=== PATIENT | male | born 1935 | race Caucasian/White ===

== ENCOUNTER 2019-01-03 12:52 | Day surgery (SDC) | payer MEDICARE ==
[~2019-01-03] VITALS: Ht 188 cm; Wt 96.5 kg
[~2019-01-03 12:52] MED LIST: ATOR10; FEXO60
[2019-01-03] MEDS ORDERED: ATEN25 (13:52)
[2019-01-03] MEDS ORDERED: LEVSOD100 (13:52)
[2019-01-03] MEDS ORDERED: METF500 (13:53)
[2019-01-03] MEDS ORDERED: Aspirin EC81 MG (13:53)
[2019-01-03] MEDS ORDERED: ABAT250V (13:53)
== END 2019-01-03 15:48 | disposition home or self-care (01) ==
LOC: ORSCSDS 12:52
PROVIDERS: Internal Medicine Gastroenterology
PROC: 0DBM8ZX Excision of Descending Colon, Via Natural or Artificial Opening Endoscopic, Diagnostic (ICD-10-PCS; principal; 2019-01-03 14:30)
PROC: 0DB68ZX Excision of Stomach, Via Natural or Artificial Opening Endoscopic, Diagnostic (ICD-10-PCS; principal; 2019-01-03 14:30)
PROC: 0D757ZZ Dilation of Esophagus, Via Natural or Artificial Opening (ICD-10-PCS; principal; 2019-01-03 14:30)
PROC: 0DBP8ZX Excision of Rectum, Via Natural or Artificial Opening Endoscopic, Diagnostic (ICD-10-PCS; principal; 2019-01-03 14:30)
PROC: 0DBK8ZX Excision of Ascending Colon, Via Natural or Artificial Opening Endoscopic, Diagnostic (ICD-10-PCS; principal; 2019-01-03 14:30)
DX: Z12.11 Encounter for screening for malignant neoplasm of colon (principal); Z86.010 Personal history of colon polyps; D12.4 Benign neoplasm of descending colon; D12.2 Benign neoplasm of ascending colon; K62.1 Rectal polyp; K57.30 Diverticulosis of large intestine without perforation or abscess without bleeding; R13.14 Dysphagia, pharyngoesophageal phase; K21.9 Gastro-esophageal reflux disease without esophagitis; K31.7 Polyp of stomach and duodenum; K29.70 Gastritis, unspecified, without bleeding; K22.2 Esophageal obstruction; K44.9 Diaphragmatic hernia without obstruction or gangrene; E11.9 Type 2 diabetes mellitus without complications; E03.9 Hypothyroidism, unspecified; Z87.891 Personal history of nicotine dependence; I25.10 Atherosclerotic heart disease of native coronary artery without angina pectoris; Z79.899 Other long term (current) drug therapy; Z79.82 Long term (current) use of aspirin
CPT/HCPCS: 82947; 87081; 88305; 88342; J2704; J7120

== ENCOUNTER 2020-10-31 16:10 | Emergency (ER) | payer MEDICARE ==
[~2020-10-31] VITALS: Ht 185.4 cm; Wt 78.5 kg
[~2020-10-31 16:10] MED LIST changes: +ABAT250V; +ATEN25; +Aspirin EC81 MG; +LEVSOD100; +METF500
== END 2020-10-31 21:08 | disposition home or self-care (01) ==
LOC: ER 16:10
DX: M54.5 Low back pain (principal); R53.1 Weakness; E11.40 Type 2 diabetes mellitus with diabetic neuropathy, unspecified; Z79.82 Long term (current) use of aspirin; Z87.891 Personal history of nicotine dependence
CPT/HCPCS: 72080; 99283-25; A9270

== ENCOUNTER 2023-03-16 10:10 | Day surgery (SDC) | payer MEDICARE ==
--- NOTE | 2023-03-16 11:10 | NUR ---
03/16/23 1110 Bonny Rosario UPON BRINGING PATIENT IN TO [facility] AREA TO GET PATIENT ADMITTED INTO [facility], PT REPORTED TO SAHARA BOOKER THAT HE HAD EATEN AT 0700 THIS MORNING. ADE CONSULTED WITH ANESTHESIOLOGIST, DR. VARMA, AND CASE WAS CANCELLED. PT ADVISED HE WILL NEED TO CONTACT DR CHAKRABORTY'S OFFICE TO BE RESCHEDULED.
== END 2023-03-16 11:05 | disposition home or self-care (01) ==
LOC: ORSCSDS 10:10
DX: M67.449 Ganglion, unspecified hand (principal); Z53.9 Procedure and treatment not carried out, unspecified reason
CPT/HCPCS: J0690; J2795; J7120

== ENCOUNTER 2023-04-06 10:44 | Day surgery (SDC) | payer MEDICARE ==
[~2023-04-06] VITALS: Ht 188 cm; Wt 93.5 kg
[2023-04-06 13:07] VITALS: BP 137/89
== END 2023-04-06 13:31 | disposition home or self-care (01) ==
LOC: ORSCSDS 10:44
PROVIDERS: Orthopaedic Surgery
PROC: 0JBK0ZZ Excision of Left Hand Subcutaneous Tissue and Fascia, Open Approach (ICD-10-PCS; principal; 2023-04-06 12:00)
DX: M67.442 Ganglion, left hand (principal); I10 Essential (primary) hypertension; E11.9 Type 2 diabetes mellitus without complications; E07.9 Disorder of thyroid, unspecified; Z79.84 Long term (current) use of oral hypoglycemic drugs; Z79.82 Long term (current) use of aspirin; Z79.899 Other long term (current) drug therapy; Z87.891 Personal history of nicotine dependence
CPT/HCPCS: 82947; 88304; J0690; J2795; J3010; J7120

== ENCOUNTER → 2023-12-24 | Outpatient (CLI) | payer MEDICARE ==
[2023-12-25 11:38] LABS: Source, Urine Voided
[2023-12-25 12:50] LABS: Appearance, Urine Hazy (Clear); Bilirubin, Urine Neg (Neg); Blood, Urine 1+ (Neg); Color, Urine Yellow (P-Yellow); Glucose Qualitative, Urine Neg (Neg); Ketones, Urine 1+ (Neg); Leukocyte Esterase, Urine 3+ (Neg); Nitrite, Urine Pos (Neg); Protein, Urine Neg (Neg); Specific Gravity, Urine 1.025 (1.003-1.022); Urobilinogen, Urine NORM (Normal)
[2023-12-25 13:22] LABS: Bacteria Many /hpf; Squamous Epithelial Cells Few /hpf (Few)
[2023-12-25 13:38] LABS: Creatinine, Urine Random 82.1 mg/dL (27.00-270.00); Microalb/Creat Ratio UR, Rand 45.92 mg/g (0.000-30.000); Microalbumin, Random Urine 37.7 mg/L (0.000-20.000)
== END ==
LOC: LAB 11:38 → LAB SHORT 11:38
PROVIDERS: Nurse Practitioner Family
DX: I10 Essential (primary) hypertension (principal); E11.42 Type 2 diabetes mellitus with diabetic polyneuropathy
CPT/HCPCS: 81001; 82043; 82570; 87077; 87086; 87186